=== PATIENT | female | born 1995 | race Caucasian/White ===

== ENCOUNTER 2019-07-26 16:25 | Emergency (ER) | payer BC, SELFPAY ==
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
[2019-07-26 16:32] VITALS: BP 113/69; PULSE 80; RESP 20; TEMP 36.5; O2SAT 100
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
[2019-07-26 18:47] VITALS: BP 120/70; PULSE 88; RESP 20; TEMP 36.7; O2SAT 98
== END 2019-07-26 18:49 | disposition home or self-care (01) ==
PROVIDERS: Emergency Provider Emergency Medicine
DX: S16.1XXA Strain of muscle, fascia and tendon at neck level, initial encounter (principal); O9A.211 Injury, poisoning and certain other consequences of external causes complicating pregnancy, first trimester; Z3A.01 Less than 8 weeks gestation of pregnancy; V49.40XA Driver injured in collision with unspecified motor vehicles in traffic accident, initial encounter
CPT/HCPCS: 72125; 99284